=== PATIENT | female | born 1945 | race Caucasian/White ===

== ENCOUNTER 2018-02-28 00:34 | Outpatient (CLI) | payer OTHER, SELFPAY ==
--- NOTE | 2018-02-28 12:34 | DI.RAD_ITS ---
SYMPTOMS/DIAGNOSIS: OSTEOPOROSIS, M81.0, AGE-RELATED OSTEOPOROSIS WITHOUT CURRENT PHYSIOLOGICAL FRACTURE DEXA SCAN WITH IZA: Comparison is made with 2007. The IZA image shows no evidence of compression fractures. The bone mineral density measurements of the lumbar spine correspond to a T score of -3.9, in the osteoporotic range. This is a 5.8% decrease when compared with 2007. The bone mineral density measurements of the left hip correspond to a total T score of -3.5 and a femoral neck T score of -4.1, also consistent with osteoporosis. This is an 11.8% decrease when compared with 2007. The bone mineral density measurements of the left forearm correspond to a T score of the distal third of -3.8. The forearm was not analyzed on the previous exam. IMPRESSION: Osteoporosis of the left forearm, left hip and lumbar spine with decrease when compared with 2007.
== END 2018-02-28 00:54 ==
PROVIDERS: PCP Family Medicine; Visit Provider Family Medicine
DX: M81.0 Age-related osteoporosis without current pathological fracture (principal)
CPT/HCPCS: 77080

== ENCOUNTER 2018-04-10 00:47 | Outpatient (CLI) | payer OTHER, SELFPAY ==
--- NOTE | 2018-04-10 07:49 | DI.US_ITS ---
SYMPTOMS/DIAGNOSIS: SURVEILLANCE FOR LIVER CANCER, HEPATITIS C VIRUS INFECTION ABDOMINAL ULTRASOUND: Routine examination. Comparison is 10/27/17. The aorta and IVC are unremarkable. The liver measures 12 cm in length. No hepatic mass is seen. There is normal flow through the portal vein. No intrahepatic biliary ductal dilatation is present. The gallbladder is negative. There is a negative sonographic Meier's sign. The common duct is within normal limits at 0.4 cm. The pancreas, kidneys and spleen are unremarkable. No free fluid is seen in the abdomen. IMPRESSION: Negative abdominal ultrasound. No evidence of a hepatic mass.
== END 2018-04-10 01:07 ==
PROVIDERS: PCP Family Medicine; Visit Provider Family Medicine
DX: B19.20 Unspecified viral hepatitis C without hepatic coma (principal); Z12.89 Encounter for screening for malignant neoplasm of other sites
CPT/HCPCS: 76700

== ENCOUNTER 2018-10-31 00:54 | Outpatient (CLI) | payer OTHER, SELFPAY ==
--- NOTE | 2018-10-31 07:36 | DI.US_ITS ---
SYMPTOM/DIAGNOSIS: HEP C. CHRONIC HEPATITIS K73.9 ABDOMEN ULTRASOUND: Comparison is made with 10 Apr 2018 The liver is normal in size and echogenicity. No liver masses or biliary dilatation is seen. The gallbladder is unremarkable, without evidence of stones or wall thickening. The spleen is normal in size. The kidneys, pancreas and aorta appear normal. There is no ascites. IMPRESSION: Negative abdomen ultrasound.
== END 2018-10-31 01:14 ==
PROVIDERS: PCP Family Medicine; Visit Provider Family Medicine
DX: B18.2 Chronic viral hepatitis C (principal)
CPT/HCPCS: 76700

== ENCOUNTER 2019-03-13 01:27 | Outpatient (CLI) | payer OTHER, SELFPAY ==
--- NOTE | 2019-03-13 12:45 | DI.MAMMO_ITS ---
EXAM: MG MAMMO SCREENING CLINICAL HISTORY: screening, Z12.39 TECHNIQUE: Mammograms were interpreted according to the usual protocol including computer analysis w [email or web address] CAD system, tomosynthesis and C-view imaging. COMPARISON: [id number] FINDINGS: The breasts are composed of heterogeneously dense tissue, which may obscure small masses, breast dens ity category C. There are no significant masses or signficant microcalcifications. There has been no significant interval change when compared with prior images. IMPRESSION: Category 1, negative mammogram. Yearly screening mammography is recommended. BI-RADS Cat 1 - Negative Breast Density - Category C - Heterogeneously dense
== END 2019-03-13 01:47 ==
PROVIDERS: PCP Family Medicine; Visit Provider Family Medicine
DX: Z12.31 Encounter for screening mammogram for malignant neoplasm of breast (principal)
CPT/HCPCS: 77063; 77067

== ENCOUNTER 2019-05-11 03:08 | Outpatient (CLI) | payer OTHER, SELFPAY ==
--- NOTE | 2019-05-11 07:06 | DI.US_ITS ---
EXAM: US ABDOMEN CLINICAL HISTORY: HEP C, 6 MO F/U,B18.2 TECHNIQUE: Ultrasound performed using standard protocol. COMPARISON: US ABDOMEN from 10/31/2018 FINDINGS: Visualized liver parenchyma is normal in appearance. No focal lesion identified. No cholelithiasis or biliary dilatation. Pancreas appears intact as visualized. There may be tiny splenic calcified granulomas. Otherwise spleen is unremarkable. Kidneys are unremarkable in appearance with no evidence of hydronephrosis or nephrolithiasis. Abdominal aorta and IVC are of normal diameter. IMPRESSION: Negative abdominal ultrasound. No focal hepatic lesion.
== END 2019-05-11 03:28 ==
PROVIDERS: PCP Family Medicine; Visit Provider Nurse Practitioner
DX: B18.2 Chronic viral hepatitis C (principal)
CPT/HCPCS: 76700

== ENCOUNTER 2019-07-18 10:24 | Outpatient (CLI) | payer OTHER, SELFPAY ==
[2019-07-18 13:22] LABS: ALT 17 U/L (14-59); AST 21 U/L (15-37); Albumin 4.4 g/dL (3.4-5.0); Alkaline Phosphatase 67 U/L (46-116); Bilirubin, Direct 0.12 mg/dL (0.00-0.20); Bilirubin, Total 0.4 mg/dL (0.2-1.0); Total Protein 7.7 g/dL (6.4-8.2)
== END 2019-07-18 10:44 ==
PROVIDERS: PCP Family Medicine; Visit Provider Nurse Practitioner
DX: B18.2 Chronic viral hepatitis C (principal)
CPT/HCPCS: 36415; 80076

== ENCOUNTER 2019-12-11 13:01 | Outpatient (CLI) | payer OTHER, SELFPAY ==
--- NOTE | 2019-12-11 15:02 | DI.RAD_ITS ---
EXAM: XR RIBS BI INCLUDE CHEST CLINICAL HISTORY: rib pain after log fell on her, pleurodynia, R07.81 TECHNIQUE: COMPARISON: CR RIGHT CLAVICLE LIMITED 1 VIEW from 10/01/2015 FINDINGS: PA and lateral chest and 5 additional views of ribs were obtained. Heart is not enlarged. The lungs are clear and well expanded. No pleural effusion seen. There are a fractures ribs 6 through 9 on the right anteriorly. No definite left rib fracture seen. IMPRESSION: Multiple anterior rib fractures on the right, nondisplaced. No associated pneumothorax or hemothorax .
== END 2019-12-11 13:21 ==
PROVIDERS: PCP Family Medicine; Visit Provider Family Medicine
DX: R07.81 Pleurodynia (principal); S22.41XA Multiple fractures of ribs, right side, initial encounter for closed fracture
CPT/HCPCS: 71046; 71110

== ENCOUNTER 2020-02-01 03:45 | Outpatient (CLI) | payer OTHER, SELFPAY ==
--- NOTE | 2020-02-01 06:15 | DI.US_ITS ---
EXAM: US ABDOMEN CLINICAL HISTORY: h/o hep c,b18.2,f/u TECHNIQUE: Ultrasound abdomen performed using standard protocol. COMPARISON: US US ABDOMEN from 05/11/2019 FINDINGS: ABDOMINAL AORTA AND IVC: Visualized portions normal caliber. PANCREAS: Normal where visualized. LIVER: Normal. Hepatopedal flow in the Portal Vein. GALLBLADDER: No evidence of cholelithiasis. No evidence of wall thickening. No pericholecystic fluid identified. BILIARY SYSTEM: Common bile duct measures < 7 mm. No intrahepatic biliary ductal dilation. LI'S SIGN: Negative. KIDNEYS: Kidneys are symmetric in size. No evidence of renal calculi. No evidence of hydronephrosis. No renal mass or cyst identified. SPLEEN: Could not be visualized due to patient body habitus. ASCITES: None seen. IMPRESSION: No evidence of a hepatic mass. DATA REPOSITORY:
== END 2020-02-01 04:05 ==
PROVIDERS: PCP Family Medicine; Visit Provider Family Medicine
DX: B18.2 Chronic viral hepatitis C (principal)
CPT/HCPCS: 76700

== ENCOUNTER 2020-08-28 01:59 | Outpatient (CLI) | payer OTHER, SELFPAY ==
--- NOTE | 2020-08-28 07:00 | DI.MAMMO_ITS ---
EXAM: MAMMO SCREENING CLINICAL HISTORY: screening,z12.39. TECHNIQUE: Bilateral full field digital CC and MLO mammographic images were obtained with 3D tomosyn thesis and utilizing computer aided detection (CAD). COMPARISON: Prior mammograms dating back to 2010, the most recent being March 2019. FINDINGS: In the left breast there is an asymmetric density seen on the CC view 3 cm in from the nipple measuri ng approximately 10 by 5 millimeters, possible nodule. Spot compression view recommended. Asymmetri c tissue upper-outer quadrant right breast is unchanged from prior studies. No new malignant-appearing microcalcification groups in either breast. There is no significant architectural distortion nor skin thickening-retraction. IMPRESSION: 1. No radiographic evidence of malignancy in the right breast. 2. Possible nodule left breast. Spot compression view and possible ultrasound recommended BI-RADS Category 0 - Assessment Incomplete: Need additional imaging evaluation Breast Density - Category B - Scattered areas of fibroglandular density Breast density Category C or D implies that the patient has dense breast tissue. Dense breast tissue can make it harder to find cancer on a mammogram. Dense breast tissue is also associated with an incr eased risk of breast cancer. This information about the result of the mammogram report was provided to the patient to raise their awareness. Use this report when you speak with the patient about their risks for breast cancer, which includes their family history. At that time, you may recommend additional screening tests (Ultrasoun d or MRI) as these tests may add significant information. A negative radiographic report should not delay biopsy if a dominant or clinically suspicious mass is present. Up to ten percent of cancers are not identified on mammography. A negative report may reinforce clinical impression. Adenosis and dense breasts may obscure an underlying neoplasm. False positive reports average 6 to 10%. Patient will receive a letter notifying them of these results.
== END 2020-08-28 02:19 ==
PROVIDERS: PCP Family Medicine; Visit Provider Family Medicine
DX: Z12.31 Encounter for screening mammogram for malignant neoplasm of breast (principal); R92.8 Other abnormal and inconclusive findings on diagnostic imaging of breast
CPT/HCPCS: 77063; 77067

== ENCOUNTER 2020-09-02 01:35 | Outpatient (CLI) | payer OTHER, SELFPAY ==
--- NOTE | 2020-09-02 | DI.US_ITS ---
EXAM: MG MAMMO SCREEN CALL BACK UNI and U/S breast LT limited CLINICAL HISTORY: F/U MAMMO, LT ASYMMETRIC DENSITY, ? NODULE. TECHNIQUE: Craniocaudal and mediolateral oblique Full Field Digital Mammography views of the left br east with Computer Aided Diagnosis followed by Tomosynthesis and left breast ultrasound. COMPARISON: Priors available for comparison. FINDINGS: Mammography/Tomosynthesis: Masses/Architectural Distortion: None seen. No discrete mass persists on the additional views. Microcalcifictions: No suspicious pleomorphic-type are seen. Skin Thickening/Nipple Retraction: None. Left breast US: Echotexture: Normal appearance of the glandular tissue. Shadowing: No suspicious foci. Cyst: None. Solid lesions: None seen. Ductal dilation: None. IMPRESSION: 1. No evidence of malignancy is noted. 2. A six-month follow-up left mammogram is recommended for re-evaluation. 3. The findings were discussed with the patient on the date of the examination. BI-RADS Category 3 - 6 month - Probably Benign Finding: Recommend follow-up imaging in 6 months Breast Density - Category B - Scattered areas of fibroglandular density Breast density Category C or D implies that the patient has dense breast tissue. Dense breast tissue can make it harder to find cancer on a mammogram. Dense breast tissue is also associated with an incr eased risk of breast cancer. This information about the result of the mammogram report was provided to the patient to raise their awareness. Use this report when you speak with the patient about their risks for breast cancer, which includes their family history. At that time, you may recommend additional screening tests (Ultrasoun d or MRI) as these tests may add significant information. A negative radiographic report should not delay biopsy if a dominant or clinically suspicious mass is present. Up to ten percent of cancers are not identified on mammography. A negative report may reinforce clinical impression. Adenosis and dense breasts may obscure an underlying neoplasm. False positive reports average 6 to 10%. Patient will receive a letter notifying them of these results.
== END 2020-09-02 01:55 ==
PROVIDERS: PCP Family Medicine; Visit Provider Family Medicine
DX: Z12.31 Encounter for screening mammogram for malignant neoplasm of breast (principal); R92.8 Other abnormal and inconclusive findings on diagnostic imaging of breast; N64.59 Other signs and symptoms in breast
CPT/HCPCS: 76642; 77063; 77067

== ENCOUNTER 2020-12-05 03:34 | Outpatient (CLI) | payer OTHER, SELFPAY ==
[2020-12-05 11:04] LABS: ALT 17 U/L (14-59); AST 17 U/L (15-37); Albumin 3.9 g/dL (3.4-5.0); Alkaline Phosphatase 82 U/L (46-116); Anion Gap 6.6 mmol/L (3-11); BUN 16 mg/dL (7-18); Bilirubin, Total 0.4 mg/dL (0.2-1.0); CO2 30.4 mmol/L (21.0-32.0); CREATININE 0.9 mg/dL (0.55-1.02); Calcium 8.5 mg/dL (8.5-10.1); Chloride 104 mmol/L (98-107); Glucose 95 mg/dL (74-106); Potassium 3.9 mmol/L (3.5-5.1); Sodium 141 mmol/L (136-145); Total Protein 7.1 g/dL (6.4-8.2)
[2020-12-08 08:48] LABS: AFP Tumor Marker <2.5 ng/mL (<8.1)
[2020-12-08 10:22] LABS: Hepatitis C Ab w Rflx HCV PCR Reactive (Negative)
[2020-12-10 15:18] LABS: HCV RNA Qualitative Undetected (Undetected)
== END 2020-12-05 03:35 | disposition home or self-care (01) ==
LOC: LBO 03:34
PROVIDERS: PCP Family Medicine; Visit Provider Family Medicine
DX: B18.2 Chronic viral hepatitis C (principal)
CPT/HCPCS: 36415; 80053; 86803; 87522; 82105

== ENCOUNTER 2021-01-29 11:36 | Outpatient (CLI) | payer OTHER, SELFPAY ==
--- NOTE | 2021-01-29 11:30 | RT.EKG_ITS ---
APPROVED REPORT Exam: Resting ECG Reason for Exam: Chest discomfort Patient Location: O HR:59 bpm ECG Measurements Heart Rate 59 AXIS DC 172 P 78 QRSd 87 QRS 78 QT 415 T 62 QTc 410 Conclusion Slow sinus arrhythmia...V-rate 50- 82, mean< 60 Probable left atrial enlargement...P >50mS, <-0.10mV V1
== END 2021-01-29 11:37 | disposition home or self-care (01) ==
PROVIDERS: PCP Family Medicine; Visit Provider Nurse Practitioner Family
DX: R07.89 Other chest pain (principal)
CPT/HCPCS: 93010

== ENCOUNTER 2021-01-29 21:08 | Outpatient (REF) | payer OTHER, SELFPAY ==
[2021-01-29 18:09] LABS: Abs Immature Grans 0.01 10^3/uL (0.0-0.06); Absolute Basophil Count 0.05 10^3/uL (0.0-0.2); Absolute Eosinophil Count 0.14 10^3/uL (0.0-0.7); Absolute Lymphocyte Count 0.97 10^3/uL (1.2-3.4); Absolute Monocyte Count 0.64 10^3/uL (0.1-0.8); Absolute Neutrophil Count 2.27 10^3/uL (1.2-6.7); Basophils % 1.2; Eosinophils % 3.4; HCT 37.3 % (36.0-46.0); HGB 11.8 g/dL (11.2-15.7); Immature Grans % 0.2; Lymphocytes % 23.8; MCH 29.7 pg (27.0-33.0); MCHC 31.6 % (32.0-36.0); MPV 11.3 fL (8.0-11.0); Monocytes % 15.7; Neutrophils % 55.7; Nucleated RBC 0 %; RBC 3.97 10^6/uL (3.93-5.22); RDW 13.2 % (11.7-14.6); RDW-SD 45.3 fL; WBC 4.08 10^3/uL (4.4-10.8)
[2021-01-29 18:25] LABS: Anion Gap 6.5 mmol/L (3-11); BUN 17 mg/dL (7-18); CO2 29.5 mmol/L (21.0-32.0); CREATININE 0.9 mg/dL (0.55-1.02); Calcium 8.6 mg/dL (8.5-10.1); Chloride 105 mmol/L (98-107); Glucose 109 mg/dL (74-106); Magnesium 2.1 mg/dL (1.8-2.4); Potassium 4.6 mmol/L (3.5-5.1); Sodium 141 mmol/L (136-145)
[2021-01-29 18:34] LABS: Platelet Count 103 10^3/uL (130-400)
[2021-01-31 12:06] LABS: COVID-19 RT-PCR UVMMC Result Negative (Negative)
== END 2021-01-29 21:09 | disposition home or self-care (01) ==
LOC: LBN 21:08
PROVIDERS: Referring Provider Nurse Practitioner Family; Visit Provider Nurse Practitioner Family
DX: R07.9 Chest pain, unspecified (principal); Z20.822 Contact with and (suspected) exposure to COVID-19
CPT/HCPCS: 80048; U0003; 83735; 85025

== ENCOUNTER 2021-02-05 02:05 | Outpatient (CLI) | payer MEDICARE, SELFPAY ==
--- NOTE | 2021-02-05 08:00 | ETT_ITS ---
APPROVED REPORT Exam: Exercise Treadmill Patient Location: Out-Patient Room/Bed: Stress Nurse: Antoinette Brown RN Ordering Provider:BONNIE CROWLEY, Contact Number: [phone] BMI: 17.35 Baseline Rhythm: Sinus Arrhythmia Comment: inverted T waves in leads aVL and V2. Indications: Chest Pain Medical History Medical History: Anxiety, Bulemia nervosa, Depression, Osteoporosis, Renal failure syndrome Cardiac Medications: None Allergies: No known drug allergies Cardiac Risk Factors: None Previous Cardiac Procedures: None Pretest Chest Pain Characteristics: No chest pain; I have a lot of different pains Exercise History: Physically active Physical Disabilities: None Lung Sounds: Clear to auscultation Heart Sounds: Irregular Stress Test Details Test: Exercise stress testing was performed using a modified Chicho protocol due to unexpected treadm ill error during exercise test. Rest Stress HR Resting HR Supine: 61 bpm Max Heart Rate (APMHR): 147 bpm Resting HR Standin bpm Target HR (85% APMHR): 124 bpm Max HR Achieved: 135 bpm % of APMHR: 91 Recovery HR: 75 bpm HR response to stress: Normal HR response to stress BP Resting BP Supine: 128/70 mmHg Resting BP Standin/72 mmHg Max BP: 138/80 mmHg Recovery BP: 138/80 mmHg BP response to stress: Normal blood pressure response to stress. Comment: Hypotensive response to cessation of exercise. ECG Resting ECG: Sinus Arrhythmia Ectopy: None Comment: inverted T waves in leads aVL and V2 Stress ECG: Sinus Tachycardia ST Change: No significant ST segment changes noted Arrhythmia: None Recovery ECG: Sinus Arrhythmia Recovery ST Change: No significant ST segment changes noted Recovery Arrhythmia: None Clinical Reason for Termination: Fatigue Stress Symptoms: None Rate Pressure Product: 30208 Stress ECG Conclusion 1. Resting electrocardiogram showed right axis deviation, voltage for left ventricular hypertrophy, a trial premature beats 2. Patient exercised on a modified Chicho protocol. She achieved a workload of 7 METS, limited by fat igue 3. Peak heart rate achieved was 91% of predicted for age. Normal heart rate response to exercise. B lunted blood pressure response to exercise 4. Electrocardiographically there was no evidence of myocardial ischemia Stress Test Summary STAGE Time (mins) Speed (mph) Grade (%) HR BP SYMPTOMS METS Supine 61 128/70 Standing 71 120/72 1 3 1.7 10 88 120/74 4.6 2 6 2.5 12 91 124/68 7 1 min recovery 111 120/68 3 min recovery 72 138/70 6 min recovery 75 138/80 Treadmill unexpectedly stopped during exercise testing, at 8 min 46 sec. Monitor displayed Treadm ill Communication Error. Patient was asked to get off treadmill to troubleshoot. After a few minutes Treadmill was available to use again. Because of the time already spent on the treadmill, I decided to continue with current test instead of having patient start over. Treadmill was restarted in manual mode and patient increased speed and incline to 4.2 mph at 16% grade before having to stop. Total du ration of exercise was about 12 minutes.
== END 2021-02-05 02:25 ==
PROVIDERS: PCP Family Medicine; Visit Provider Family Medicine
DX: R07.9 Chest pain, unspecified (principal); I49.1 Atrial premature depolarization; I51.7 Cardiomegaly
CPT/HCPCS: 93016; 93018; 93017

== ENCOUNTER 2021-02-05 04:02 | Outpatient (CLI) | payer OTHER, SELFPAY ==
[2021-02-05 13:49] LABS: TSH (W/Ref FT4) 1.69 uIU/mL (0.36-3.74)
== END 2021-02-05 04:03 | disposition home or self-care (01) ==
LOC: LBO 04:02
PROVIDERS: PCP Family Medicine; Visit Provider Family Medicine
DX: R53.83 Other fatigue (principal)
CPT/HCPCS: 36415; 84443

== ENCOUNTER 2021-03-04 02:22 | Outpatient (CLI) | payer MEDICARE, SELFPAY ==
--- NOTE | 2021-03-04 07:15 | DI.US_ITS ---
Exam(s) US BREAST LT COMPLETE EXAM: US BREAST LT COMPLETE CLINICAL HISTORY: 3-6 MO F/U,F/U INCONCLUSIVE ABNL MAMMO, Z09. TECHNIQUE: Complete ultrasound of the left breast was performed including all 4 quadrants, the retro areolar region, and the ipsilateral axilla. COMPARISON: Prior mammograms were reviewed. . Today's spot compression mammographic view was also r eviewed. FINDINGS: At the 2 o'clock position there is a small benign-appearing lymph node which corresponds to lymph nod e which has been on numerous prior mammograms. At the 4 o'clock position there is also a finding which is difficult to determine intramammary lymph node versus normal tissue. Nevertheless, there is no ominous solid mass evident on ultrasound IMPRESSION: Benign ultrasound findings. Appropriate follow-up is to keep this patient yearly mammogram schedule, this implying that her next bilateral mammogram is in August 2021, with earlier imaging if a self detected breast change is noted. . BI-RADS Category 2 - Benign Findings Breast Density - Category B - Scattered areas of fibroglandular density Breast density Category C or D implies that the patient has dense breast tissue. Dense breast tissue can make it harder to find cancer on a mammogram. Dense breast tissue is also associated with an incr eased risk of breast cancer. This information about the result of the mammogram report was provided to the patient to raise their awareness. Use this report when you speak with the patient about their risks for breast cancer, which includes their family history. At that time, you may recommend additional screening tests (Ultrasoun d or MRI) as these tests may add significant information. A negative radiographic report should not delay biopsy if a dominant or clinically suspicious mass is present. Up to ten percent of cancers are not identified on mammography. A negative report may reinforce clinical impression. Adenosis and dense breasts may obscure an underlying neoplasm. False positive reports average 6 to 10%. Patient will receive a letter notifying them of these results.
--- NOTE | 2021-03-04 09:20 | DI.MAMMO_ITS ---
Exam(s) MAMMO DIAGNOSTIC UNI EXAM: MAMMO DIAGNOSTIC UNI-LEFT CLINICAL HISTORY: 3-6 MO F/U,R92.8,INCONCLUSIVE ABNL MAMMO, Z09. TECHNIQUE: Unilateral spot mammographic images were obtained with 3D tomosynthesis technique and uti lizing computer aided detection (CAD). COMPARISON: Prior mammograms dating back to 2011, the most recent being August 2020. FINDINGS: Previously described asymmetric density seen in the left breast is again noted, again more visible on the CC than on the MLO view. 3D imaging is somewhat equivocal at this level. We repeated left breast ultrasound today (see that separate report) and this did not reveal new obvio us abnormality. IMPRESSION: Benign findings. No obvious radiographic evidence of malignancy in left breast. Appropriate follow-up is to keep this patient on her yearly mammogram schedule, this implying that he r next bilateral mammogram would be in 6 months-August 2021, with earlier imaging if a self detected b reast change is noted.. The patient was informed of the findings and follow-up recommendations by myself prior to leaving the department today. BI-RADS Category 2 - Benign Findings Breast Density - Category B - Scattered areas of fibroglandular density Breast density Category C or D implies that the patient has dense breast tissue. Dense breast tissue can make it harder to find cancer on a mammogram. Dense breast tissue is also associated with an incr eased risk of breast cancer. This information about the result of the mammogram report was provided to the patient to raise their awareness. Use this report when you speak with the patient about their risks for breast cancer, which includes their family history. At that time, you may recommend additional screening tests (Ultrasoun d or MRI) as these tests may add significant information. A negative radiographic report should not delay biopsy if a dominant or clinically suspicious mass is present. Up to ten percent of cancers are not identified on mammography. A negative report may reinforce clinical impression. Adenosis and dense breasts may obscure an underlying neoplasm. False positive reports average 6 to 10%. Patient will receive a letter notifying them of these results.
== END 2021-03-04 02:42 ==
PROVIDERS: PCP Family Medicine; Visit Provider Family Medicine
DX: R92.8 Other abnormal and inconclusive findings on diagnostic imaging of breast (principal); Z09 Encounter for follow-up examination after completed treatment for conditions other than malignant neoplasm
CPT/HCPCS: 76642; 77061; 77065; G0279

== ENCOUNTER 2021-07-15 01:07 | Outpatient (CLI) | payer MEDICARE, SELFPAY ==
--- NOTE | 2021-07-15 06:30 | DI.US_ITS ---
Exam(s) US ABDOMEN EXAM: US ABDOMEN INDICATION: H/O hep c,chronic,surveillance,b18.2 COMPARISON: US US BREAST LT COMPLETE from 03/04/2021 TECHNIQUE: Ultrasound abdomen performed using standard protocol FINDINGS: Abdominal ultrasound was performed according to the usual protocol. The liver is normal in size and shape. No focal hepatic lesion seen. There is no evidence of cholelithiasis or biliary dilatation. No gallbladder wall thickening or peric holecystic fluid collection. Portal venous flow is hepatopetal. Pancreas appears intact as visualized. Spleen is unremarkable in appearance with no focal lesion. Kidneys are normal in size and shape. No renal mass, hydronephrosis, or nephrolithiasis. Abdominal aorta and IVC are of normal diameter. IMPRESSION: Negative abdominal ultrasound .
== END 2021-07-15 01:27 ==
PROVIDERS: PCP Family Medicine; Visit Provider Family Medicine
DX: B18.2 Chronic viral hepatitis C (principal)
CPT/HCPCS: 76700

== ENCOUNTER → 2021-10-19 01:41 | Outpatient (CLI) | payer MEDICARE, SELFPAY ==
--- NOTE | 2021-10-19 07:15 | DI.RAD_ITS ---
Exam(s) XR THORACIC SPINE COMPLETE EXAM: XR THORACIC SPINE COMPLETE CLINICAL HISTORY: thoracic back pain,m54.6,m81.0, osteoporosis. TECHNIQUE: 2D digital imaging was performed. Two views. COMPARISON: CR XR RIBS BI INCLUDE CHEST from 12/11/2019 FINDINGS: BONES: There are stable mild compression fractures of T7 and T11. There are new moderate compression fractures of T8 and T9. Small osteophytes are noted and the mid thoracic region. Alignment is within normal limits. SOFT TISSUE: The visualized portions of the lungs appear clear. The heart size appears normal. The aorta appears normal in diameter.. IMPRESSION: Stable T7 and T11 compression fractures. Moderate compression fractures of T8 and T9 are new when co mpared with 2020 chest x-ray.. DATA REPOSITORY: RADIATION DOSE DELIVERED:
== END ==
PROVIDERS: PCP Family Medicine; Visit Provider Family Medicine
DX: M54.6 Pain in thoracic spine (principal); M81.0 Age-related osteoporosis without current pathological fracture; M48.54XD Collapsed vertebra, not elsewhere classified, thoracic region, subsequent encounter for fracture with routine healing; M48.54XA Collapsed vertebra, not elsewhere classified, thoracic region, initial encounter for fracture
CPT/HCPCS: 72072

== ENCOUNTER 2021-11-03 02:35 | Outpatient (CLI) | payer MEDICARE, SELFPAY ==
[2021-11-04 10:07] LABS: AFP Tumor Marker <2.5 ng/mL (<8.1)
[2021-11-04 10:32] LABS: Hepatitis C Ab w Rflx HCV PCR Reactive (Negative)
[2021-11-05 14:34] LABS: HCV RNA Qualitative Undetected (Undetected)
== END 2021-11-03 02:36 | disposition home or self-care (01) ==
LOC: LBO 02:35
PROVIDERS: PCP Family Medicine; Visit Provider Family Medicine
DX: B18.2 Chronic viral hepatitis C (principal)
CPT/HCPCS: 36415; 80061; 86803; 87522; 82105

== ENCOUNTER 2021-12-04 11:37 | Outpatient (CLI) | payer MEDICARE, SELFPAY ==
[2021-12-04 13:06] LABS: ALT 18 U/L (14-59); AST 21 U/L (15-37); Albumin 4.1 g/dL (3.4-5.0); Alkaline Phosphatase 76 U/L (46-116); Anion Gap 7.8 mmol/L (3-11); BUN 17 mg/dL (7-18); Bilirubin, Total 0.6 mg/dL (0.2-1.0); CO2 28.2 mmol/L (21.0-32.0); CREATININE 0.9 mg/dL (0.55-1.02); Calcium 8.9 mg/dL (8.5-10.1); Calculated LDL 108 mg/dL (<100); Chloride 104 mmol/L (98-107); Cholesterol 220 mg/dL (<200); Glucose 88 mg/dL (74-106); HDL Cholesterol 100 mg/dL (40-60); Potassium 4.3 mmol/L (3.5-5.1); Sodium 140 mmol/L (136-145); Total Protein 7.4 g/dL (6.4-8.2); Triglyceride 64 mg/dL (<150)
[2021-12-04 13:15] LABS: Vitamin D 25 Total 53.4 ng/mL (30-100)
[2021-12-04 13:25] LABS: PHOSPHORUS 3.9 mg/dL (2.6-4.7)
[2021-12-07 10:57] LABS: Parathyroid Hormone,Intact 86 pg/mL (19-88)
== END 2021-12-04 11:38 | disposition home or self-care (01) ==
LOC: LBO 11:37
PROVIDERS: PCP Family Medicine; Visit Provider Family Medicine
DX: I10 Essential (primary) hypertension (principal); M81.0 Age-related osteoporosis without current pathological fracture
CPT/HCPCS: 36415; 80053; 80061; 82306; 83970; 84100

== ENCOUNTER 2022-03-09 03:50 | Outpatient (CLI) | payer MEDICARE, SELFPAY ==
[2022-03-09 11:03] LABS: Abs Immature Grans 0.01 10^3/uL (0.0-0.06); Absolute Basophil Count 0.03 10^3/uL (0.0-0.2); Absolute Eosinophil Count 0.12 10^3/uL (0.0-0.7); Absolute Lymphocyte Count 1.35 10^3/uL (1.2-3.4); Absolute Monocyte Count 0.56 10^3/uL (0.1-0.8); Absolute Neutrophil Count 1.71 10^3/uL (1.2-6.7); Basophils % 0.8; Eosinophils % 3.2; HCT 38.2 % (36.0-46.0); HGB 12.3 g/dL (11.2-15.7); Immature Grans % 0.3; Lymphocytes % 35.7; MCH 29.8 pg (27.0-33.0); MCHC 32.2 % (32.0-36.0); MCV 93 fL (80-95); MPV 11.7 fL (8.0-11.0); Monocytes % 14.8; Neutrophils % 45.2; Platelet Count 108 10^3/uL (130-400); RBC 4.13 10^6/uL (3.93-5.22); RDW 13.2 % (11.7-14.6); WBC 3.78 10^3/uL (4.4-10.8)
[2022-03-09 11:36] LABS: TSH (W/Ref FT4) 4.35 uIU/mL (0.36-3.74)
[2022-03-09 11:55] LABS: FREE T4 0.81 ng/dL (0.76-1.46)
[2022-03-09 17:59] LABS: Parathyroid Hormone,Intact 78 pg/mL (19-88)
[2022-03-10 14:08] LABS: Albumin 63.4 % (55.8-66.1); Albumin g/dL 4.1 g/dL (3.6-5.2); Total Protein 6.5 g/dL (6.3-8.2)
== END 2022-03-09 03:51 | disposition home or self-care (01) ==
LOC: LBO 03:50
PROVIDERS: PCP Family Medicine; Visit Provider Student in an Organized Health Care Education/Training Program
DX: M80.00XD Age-related osteoporosis with current pathological fracture, unspecified site, subsequent encounter for fracture with routine healing (principal); R53.83 Other fatigue
CPT/HCPCS: 36415; 83970; 84165; 84439; 84443; 85025

== ENCOUNTER 2022-03-09 15:07 | Outpatient (REF) | payer MEDICARE, SELFPAY ==
[2022-03-09 14:17] LABS: Creatinine,Urine 41.59 mg/dL
[2022-03-09 14:21] LABS: Creatinine,24hr Ur 0.67 g/24hr (0.60-1.80); Total Volume 1600 ml
[2022-03-11 09:07] LABS: Calcium Urine 7.9 mg/dL (See Note); Calcium Urine 24 hr 126 mg/24hrs (100-300); Timed Urine Volume 1600 mL
== END 2022-03-09 15:08 | disposition home or self-care (01) ==
LOC: LBN 15:07
PROVIDERS: PCP Family Medicine; Visit Provider Student in an Organized Health Care Education/Training Program
DX: M80.00XD Age-related osteoporosis with current pathological fracture, unspecified site, subsequent encounter for fracture with routine healing (principal)
CPT/HCPCS: 81050; 82340; 82570

== ENCOUNTER 2022-09-03 09:54 | Outpatient (CLI) | payer MEDICARE, SELFPAY ==
--- NOTE | 2022-09-03 09:45 | DI.RAD_ITS ---
Exam(s) XR CHEST 2V PA LATERAL EXAM: XR CHEST 2V PA LATERAL CLINICAL HISTORY: Fall; painful left ribs W19.XXXA TECHNIQUE: 2D digital imaging was performed. COMPARISON: CR XR RIBS BI INCLUDE CHEST from 12/11/2019 CR XR THORACIC SPINE COMPLETE from 10/19/2021 FINDINGS: HEART: Normal size. Aorta: Not dilated. PULMONARY VASCULATURE: Normal. LUNGS: Clear. PLEURAL SPACE: No pleural effusion or pneumothorax. BONE:Stable thoracic compression fractures. No rib fractures are visible. Old distal right clavicle fracture. IMPRESSION: No acute abnormality. DATA REPOSITORY: RADIATION DOSE DELIVERED:
--- NOTE | 2022-09-03 09:45 | DI.CT_ITS ---
Exam(s) CT THORACIC LUMBAR SPINE WO EXAM: CT THORACIC LUMBAR SPINE WO CLINICAL HISTORY: Fall, back pain W19.XXXA. TECHNIQUE: Imaging Protocol: Axial, coronal and sagittal images were reconstructed utilizing soft ti ssue and bone algorithm.. COMPARISON: CR XR THORACIC SPINE COMPLETE from 10/19/2021 FINDINGS: Thoracic spine: Bones: Stable moderate compression fractures of T7, T8 and T9. Stable mild compression fractures sup erior endplate of T11. No acute fractures are seen. The alignment of the spine is normal including t he cervicothoracic junction. Soft tissues: The soft tissues of the chest are unremarkable. No large disk herniations are identifie d. Lumbar spine: No fracture is identified. Degenerative disc changes and facet degenerative changes are present grea test at L5-S1.. Soft tissues: There is multilevel disc bulging. There is no large disc herniation. No paraspinal hem atoma. A large quantity of stool is incidentally noted. IMPRESSION: Stable compression fractures of the thoracic spine. No acute abnormality of the thoracic or lumbar sp ine. RADIATION DOSE DELIVERED: 486.76mGy.cm Total DLP DATA REPOSITORY: All CT scans at this facility are submitted to the National Radiology Data Registry (NRDR) Dose Index Registry (DIR) with the [employer] ([employer]). RADIATION OPTIMIZATION: All CT scans at this facility use at least one of these dose optimization te chniques: automated exposure control; mA and/or kV adjustment per patient size (includes targeted exa ms where dose is matched to clinical indication); or iterative reconstruction.
--- NOTE | 2022-09-03 09:45 | DI.CT_ITS ---
Exam(s) CT HEAD CERVICAL SPINE WO EXAM: CT HEAD CERVICAL SPINE WO CLINICAL HISTORY: Fall, left face pain, swelling, ecchymosis W19.XXXA. TECHNIQUE: Imaging Protocol: Axial computed tomography images with coronal and sagittal reformatted images were created and reviewed COMPARISON: No exams were available for comparison FINDINGS: Head CT Ventricles and Extra axial spaces: Normal in size and morphology for the patient's age. Hemorrhage: None. Cerebral parenchyma: Normal. Midline shift: None. Brainstem/Cerebellum: Normal. Calvarium: Normal. No facial fractures. Visualized Paranasal sinuses/Mastoids: Clear. Cervical Spine CT BONES: Vertebral body heights are maintained. Alignment is normal. There is no evidence of acute frac ture. Degenerative disc changes and facet degenerative changes are seen . SOFT TISSUES: No paraspinal hematoma. The airway appears intact. No pneumothorax is seen at the lung apices. IMPRESSION: Head CT: No acute abnormality. C-spine CT: Degenerative changes, no acute abnormality. RADIATION DOSE DELIVERED: 906.05mGy.cm Total DLP DATA REPOSITORY: All CT scans at this facility are submitted to the National Radiology Data Registry (NRDR) Dose Index Registry (DIR) with the [employer] ([employer]). RADIATION OPTIMIZATION: All CT scans at this facility use at least one of these dose optimization te chniques: automated exposure control; mA and/or kV adjustment per patient size (includes targeted exa ms where dose is matched to clinical indication); or iterative reconstruction.
== END 2022-09-03 10:14 ==
LOC: DI 09:54
PROVIDERS: PCP Family Medicine; Visit Provider Nurse Practitioner Family
DX: W19.XXXA Unspecified fall, initial encounter (principal)
CPT/HCPCS: 70450; 71046; 72125; 72128; 72131

== ENCOUNTER 2022-09-10 02:09 | Outpatient (CLI) | payer MEDICARE, SELFPAY ==
[2022-09-10 16:41] LABS: ALT 16 U/L (14-59); AST 19 U/L (15-37); Albumin 3.7 g/dL (3.4-5.0); Alkaline Phosphatase 68 U/L (46-116); Anion Gap 5.9 mmol/L (3-11); BUN 13 mg/dL (7-18); Bilirubin, Total 0.5 mg/dL (0.2-1.0); CO2 29.1 mmol/L (21.0-32.0); Calcium 8.9 mg/dL (8.5-10.1); Chloride 104 mmol/L (98-107); Estimated GFR 58.75 (mL/min/1.73m2); Glucose 146 mg/dL (74-106); Potassium 4.4 mmol/L (3.5-5.1); Sodium 139 mmol/L (136-145); Total Protein 7.2 g/dL (6.4-8.2)
[2022-09-13 10:43] LABS: Hepatitis C Ab w Rflx HCV PCR Reactive (Negative)
[2022-09-15 12:23] LABS: HCV RNA Qualitative Undetected (Undetected)
== END 2022-09-10 02:10 | disposition home or self-care (01) ==
LOC: LBO 02:09
PROVIDERS: PCP Family Medicine; Visit Provider Family Medicine
DX: B18.2 Chronic viral hepatitis C (principal)
CPT/HCPCS: 36415; 80053; 86803; 87522

== ENCOUNTER 2022-09-21 01:15 | Outpatient (CLI) | payer MEDICARE, SELFPAY ==
--- NOTE | 2022-09-21 07:15 | DI.US_ITS ---
Exam(s) US ABDOMEN EXAM: US ABDOMEN CLINICAL HISTORY: h/o hep c,F/U,B18.2 TECHNIQUE: Ultrasound abdomen performed using standard protocol. COMPARISON: US US ABDOMEN from 07/15/2021 FINDINGS: ABDOMINAL AORTA AND IVC: Visualized portions normal caliber. PANCREAS: Normal where visualized. LIVER: Normal. Hepatopedal flow in the Portal Vein. GALLBLADDER:No evidence of cholelithiasis. No evidence of wall thickening. No pericholecystic fluid i dentified. BILIARY SYSTEM: Common bile duct measures < 7 mm. No intrahepatic biliary ductal dilation. LI'S SIGN: Negative. KIDNEYS: Kidneys are symmetric in size. No evidence of renal calculi. No evidence of hydronephrosis. No renal mass or cyst identified. There is limited visualization of the left kidney due to body habit us and bowel gas. SPLEEN: No gross abnormality. There is limited visualization due to the body habitus and bowel gas. ASCITES: None seen. IMPRESSION: Normal sonographic appearance of the upper abdomen within the limitations of the examination as descr ibed above. DATA REPOSITORY:
== END 2022-09-21 01:35 ==
PROVIDERS: PCP Family Medicine; Visit Provider Family Medicine
DX: B18.2 Chronic viral hepatitis C (principal); Z86.19 Personal history of other infectious and parasitic diseases
CPT/HCPCS: 76700

== ENCOUNTER 2022-12-13 01:20 | Outpatient (CLI) | payer MEDICARE, SELFPAY ==
--- NOTE | 2022-12-13 08:15 | DI.MAMMO_ITS ---
Exam(s) MAMMO SCREENING EXAM: MAMMO SCREENING CLINICAL HISTORY: screening,z12.39 TECHNIQUE: Mammograms were interpreted according to the usual protocol including computer analysis w [employer] CAD system, tomosynthesis and C-view imaging. COMPARISON: 2013 through 2019 FINDINGS: The breasts are composed of scattered fibroglandular densities, Breast Density category B. No suspicious masses or suspicious microcalcifications are seen. No skin thickening or abnormal axillary lymph nodes are seen. There has been no significant change from prior exams. IMPRESSION: BI-RADS Category 1, Negative mammogram Yearly screening mammography is recommended. Breast Density - Category B, scattered fibroglandular densities. A negative radiographic report should not delay biopsy if a dominant or clinically suspicious mass is present. Up to ten percent of cancers are not identified on mammography. A negative report may reinforce clinical impression. Adenosis and dense breasts may obscure an underlying neoplasm. False positive reports average 6 to 10%. Patient will receive a letter notifying them of these results.
== END 2022-12-13 01:40 ==
LOC: DI 01:20
PROVIDERS: PCP Family Medicine; Visit Provider Family Medicine
DX: Z12.31 Encounter for screening mammogram for malignant neoplasm of breast (principal)
CPT/HCPCS: 77063; 77067

== ENCOUNTER 2023-02-17 11:30 | Outpatient (REF) | payer MEDICARE, SELFPAY ==
[2023-02-17 14:49] LABS: Source Nasal/Nares
[2023-02-17 16:25] LABS: COVID-19 PCR Negative (Negative)
== END 2023-02-17 11:31 | disposition home or self-care (01) ==
LOC: NCHCN 11:30
PROVIDERS: PCP Family Medicine; Visit Provider Physician Assistant Medical
DX: U07.1 COVID-19 (principal)
CPT/HCPCS: 87635

== ENCOUNTER → 2023-07-11 02:36 | Outpatient (CLI) | payer MEDICARE, SELFPAY ==
--- NOTE | 2023-07-11 08:45 | DI.CT_ITS ---
Exam(s) CT HEAD WO EXAM: CT HEAD WO CLINICAL HISTORY: memory changes, R41.3. TECHNIQUE: Imaging Protocol: Axial computed tomography images with coronal and sagittal reformatted images were created and reviewed COMPARISON: CT CT HEAD CERVICAL SPINE WO from 09/03/2022 FINDINGS: Ventricles and Extra axial spaces: Normal in size and morphology for the patient's age. Hemorrhage: None. Cerebral parenchyma: No evidence of acute infarct or mass. Midline shift: None. Brainstem/Cerebellum: Normal. Calvarium: Normal. Visualized Paranasal sinuses:Clear. Mastoids: Clear. Soft Tissues: Unremarkable. ORBITS: Unremarkable. PITUITARY: Not enlarged. IMPRESSION: No acute intracranial process. RADIATION DOSE DELIVERED: 648.21mGy.cm Total DLP DATA REPOSITORY: All CT scans at this facility are submitted to the National Radiology Data Registry (NRDR) Dose Index Registry (DIR) with the [employer] (ACR). RADIATION OPTIMIZATION: All CT scans at this facility use at least one of these dose optimization te chniques: automated exposure control; mA and/or kV adjustment per patient size (includes targeted exa ms where dose is matched to clinical indication); or iterative reconstruction.
== END ==
PROVIDERS: PCP Family Medicine; Visit Provider Family Medicine
DX: R41.3 Other amnesia (principal)
CPT/HCPCS: 70450

== ENCOUNTER 2023-07-11 04:57 | Outpatient (CLI) | payer MEDICARE, SELFPAY ==
[2023-07-11 08:54] LABS: HCT 39.3 % (36.0-46.0); HGB 12.6 g/dL (11.2-15.7); MCH 29.7 pg (27.0-33.0); MCHC 32.1 % (32.0-36.0); MCV 93 fL (80-95); MPV 10.9 fL (8.0-11.0); Platelet Count 122 10^3/uL (130-400); RBC 4.24 10^6/uL (3.93-5.22); RDW 13.3 % (11.7-14.6); RDW-SD 45.2 fL; WBC 3.55 10^3/uL (4.4-10.8)
[2023-07-11 09:41] LABS: ALT 13 U/L (14-59); AST 18 U/L (15-37); Albumin 3.8 g/dL (3.4-5.0); Alkaline Phosphatase 63 U/L (46-116); Anion Gap 7.2 mmol/L (3-11); BUN 21 mg/dL (7-18); Bilirubin, Total 0.4 mg/dL (0.2-1.0); CO2 30.8 mmol/L (21.0-32.0); Calcium 9.6 mg/dL (8.5-10.1); Chloride 103 mmol/L (98-107); Estimated GFR 58.75 (mL/min/1.73m2); Glucose 92 mg/dL (74-106); Potassium 4.2 mmol/L (3.5-5.1); Sodium 141 mmol/L (136-145); TSH (W/Ref FT4) 2.81 uIU/mL (0.36-3.74); Total Protein 7.1 g/dL (6.4-8.2); Vitamin B12 1091 pg/mL (193-986)
[2023-07-11 09:42] LABS: Hemoglobin A1C 5.6 % (<5.7)
[2023-07-11 18:41] LABS: Hepatitis C Ab w Rflx HCV PCR Reactive (Negative)
[2023-07-13 12:54] LABS: HCV RNA Qualitative Undetected (Undetected)
== END 2023-07-11 04:58 | disposition home or self-care (01) ==
LOC: LBO 04:57
PROVIDERS: PCP Family Medicine; Visit Provider Family Medicine
DX: E03.9 Hypothyroidism, unspecified (principal); R41.3 Other amnesia; E11.9 Type 2 diabetes mellitus without complications; I10 Essential (primary) hypertension; B18.2 Chronic viral hepatitis C; D64.9 Anemia, unspecified
CPT/HCPCS: 36415; 80053; 85027; 86803; 87522; 82607; 83036; 84443

== ENCOUNTER → 2023-09-20 10:28 | Outpatient (CLI) | payer MEDICARE, SELFPAY ==
--- NOTE | 2023-09-20 10:00 | DI.RAD_ITS ---
Exam(s) XR LUMBAR SPINE COMPLETE EXAM: XR LUMBAR SPINE COMPLETE CLINICAL HISTORY: back pain, dorsalgia, M54.9. TECHNIQUE: 2D digital imaging was performed. COMPARISON: No exams were available for comparison FINDINGS: 3 views There is slight indentation of the superior endplate of L1 which may be a nonacute compression fractu re. There is also some loss of height of T11 at superior endplate level, age indeterminate. Advanced chronic disc space narrowing at L5-S1 level noted. IMPRESSION: Compression fractures T11 and milder in dentition of superior endplate of L1, age indeterminate. Cor relation with site of is recommended. DATA REPOSITORY: RADIATION DOSE DELIVERED:
--- NOTE | 2023-09-20 10:00 | DI.RAD_ITS ---
Exam(s) XR THORACIC SPINE COMPLETE EXAM: XR THORACIC SPINE COMPLETE CLINICAL HISTORY: back pain, dorsalgia, M54.9. TECHNIQUE: 2D digital imaging was performed. COMPARISON: CR XR THORACIC SPINE COMPLETE from 10/19/2021 FINDINGS: Four views. There are compression fractures of T7, T8, T9, and T11 again noted, unchanged. No compression fractu re of T10. No higher up compression fractures above T7. No listhesis. No prominent disc space narr owing. No abnormal widening of the paraspinal lines and there is no thoracic scoliosis. Incidentally noted is chronic degenerative disc disease in the cervical spine. IMPRESSION: Nonacute compression fractures of T7, T8, T9, and T11, appearing unchanged from images of October 2021. DATA REPOSITORY: RADIATION DOSE DELIVERED:
== END ==
PROVIDERS: PCP Family Medicine; Visit Provider Physician Assistant
DX: M54.9 Dorsalgia, unspecified (principal)
CPT/HCPCS: 72072; 72110

== ENCOUNTER 2023-09-30 02:26 | Outpatient (CLI) | payer MEDICARE, SELFPAY ==
[2023-10-03 09:34] LABS: Anaplasma phagocytophilum Negative (Negative); B. miyamotoi PCR Negative (Negative); Babesia divergens/MO-1 Negative (Negative); Babesia duncani Negative (Negative); Babesia microti Negative (Negative); Ehrlichia chaffeensis Negative (Negative); Ehrlichia ewingii/canis Negative (Negative); Ehrlichia muris eauclairensis Negative (Negative)
[2023-10-03 12:12] LABS: Lyme Ab w Rflx to Lyme Confirm Negative (Negative)
== END 2023-09-30 02:27 | disposition home or self-care (01) ==
LOC: LOS 02:26
PROVIDERS: PCP Family Medicine; Visit Provider Family Medicine
DX: R53.83 Other fatigue (principal)
CPT/HCPCS: 36415; 87798; 86618

== ENCOUNTER 2023-10-08 10:44 | Emergency (ER) | payer MEDICARE, SELFPAY ==
[2023-10-08 10:49] VITALS: BP 141/86; PULSE 89; RESP 16; TEMP 36.4; O2SAT 97
--- NOTE | 2023-10-08 11:00 | DI.CT_ITS ---
Exam(s) CT LUMBAR SPINE RECONS CT RENAL COLIC WO EXAM: CT RENAL COLIC WO CLINICAL HISTORY: right flank pain. TECHNIQUE: Imaging Protocol: Axial computed tomography images with coronal and sagittal reformatted images were created and reviewed. COMPARISON: US ABDOMEN ULTRASOUND (P) from 10/27/[address] THORACIC LUMBAR SPINE WO from 09/03/2022 CR XR LUMBAR SPINE COMPLETE from 09/20/2023 FINDINGS: Examination limited secondary to the paucity of abdominal fat. ABDOMEN: Lung Bases: There is a small pericardial effusion. Liver: Normal density. No measurable mass. Gallbladder and biliary tract: No radiodense calculus or biliary ductal dilation. Pancreas: Normal density, no abnormal calcifications or inflammatory process. Spleen: There are few calcified granuloma. Kidneys: Normal size, contour and axis.There are 2 calcifications seen in the right retroperitoneum w hich are close to the ureter but are probably separate. No masses seen. Adrenal glands: There is mild thickening of the limbs of the adrenal gland but no mass is seen. Lymph nodes: Within normal limits. Abdominal Aorta: Abdominal portion non-dilated. Atherosclerotic calcification is present. PELVIS: Bladder:Urinary bladder is incompletely distended limiting evaluation. Bowel: There is a large amount of stool throughout the colon suggesting constipation. No evidence of appendicitis. No evidence of bowel wall thickening or bowel obstruction. Normal appendix is seen i n the right lower quadrant. Peritoneal cavity: There is a small amount of free fluid in the pelvis. No free air. Reproductive organs: Unremarkable as visualized. Bones: Within normal limits. Old bilateral rib fractures. There is a loop lucency/cyst in the left p ubic bone. No destructive changes are seen in the bones. No periosteal reaction is seen. Soft Tissues: Within normal limits. CT lumbar spine recons: Age-appropriate degenerative changes are seen in the lumbar spine, particular ly at L5-S1. There is an compression fracture of the superior endplate of L1 there is mild loss of h eight of the vertebral body. This was present and identified on the x-ray of the lumbar spine from . There is also compression deformity seen in the inferior endplate of T12. Mild central sp inal canal stenosis is seen at L2-L3. IMPRESSION: 1. Small pericardial effusion. 2. Large amount of stool throughout the colon consistent with constipation. 3. Subacute fracture of the superior endplate of L1. 4. Compression fracture deformity of the inferior endplate of T12 of which is indeterminate. RADIATION DOSE DELIVERED: 848.22mGy.cm Total DLP DATA REPOSITORY: All CT scans at this facility are submitted to the National Radiology Data Registry (NRDR) Dose Index Registry (DIR) with the [employer] (ACR). RADIATION OPTIMIZATION: All CT scans at this facility use at least one of these dose optimization te chniques: automated exposure control; mA and/or kV adjustment per patient size (includes targeted exa ms where dose is matched to clinical indication); or iterative reconstruction.
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
[2023-10-08 11:37] LABS: Abs Immature Grans 0.01 10^3/uL (0.0-0.06); Absolute Basophil Count 0.04 10^3/uL (0.0-0.2); Absolute Eosinophil Count 0.07 10^3/uL (0.0-0.7); Absolute Monocyte Count 0.56 10^3/uL (0.1-0.8); Absolute Neutrophil Count 3.27 10^3/uL (1.2-6.7); Basophils % 0.8 %; Eosinophils % 1.4 %; HCT 40.4 % (36.0-46.0); HGB 13.1 g/dL (11.2-15.7); Immature Grans % 0.2 %; Lymphocytes % 18.6 %; MCH 29.7 pg (27.0-33.0); MCHC 32.4 % (32.0-36.0); MCV 92 fL (80-95); Monocytes % 11.5 %; Neutrophils % 67.5 %; Platelet Count 171 10^3/uL (130-400); RBC 4.41 10^6/uL (3.93-5.22); RDW 12.9 % (11.7-14.6); RDW-SD 43.2 fL; WBC 4.85 10^3/uL (4.4-10.8)
[2023-10-08 11:50] LABS: Magnesium 2.1 mg/dL (1.8-2.4)
[2023-10-08 11:55] LABS: ALT 17 U/L (14-59); AST 18 U/L (15-37); Alkaline Phosphatase 129 U/L (46-116); Anion Gap 7.8 mmol/L (3-11); BUN 12 mg/dL (7-18); Bilirubin, Total 0.5 mg/dL (0.2-1.0); CO2 30.2 mmol/L (21.0-32.0); Calcium 9.3 mg/dL (8.5-10.1); Chloride 100 mmol/L (98-107); Estimated GFR 58.39 (mL/min/1.73m2); Glucose 103 mg/dL (74-106); Lipase 31 U/L (16-77); Potassium 3.8 mmol/L (3.5-5.1); Sodium 138 mmol/L (136-145); Total Protein 7.7 g/dL (6.4-8.2)
--- NOTE | 2023-10-08 14:28 | DI.VRAD_ITS ---
PROCEDURE INFORMATION: Exam: CT Lumbar Spine Without Contrast Exam date and time: 10/08/2023 12:28 PM Age: 78 years old Clinical indication: Lower back pain TECHNIQUE: Imaging protocol: Computed tomography of the lumbar spine without contrast. Radiation optimization: All CT scans at this facility use at least one of these dose optimization techniques: automated exposure control; mA and/or kV adjustment per patient size (includes targeted exams where dose is matched to clinical indication); or iterative reconstruction. COMPARISON: 1. CT ABDOMEN/PELVIS 10/08/2023 12:28 PM 2. XR LUMBAR SPINE 09/20/2023 10:52 AM FINDINGS: Bones/joints: There is a mild acute compression fracture of the L1 vertebral body. No significant encroachment upon the central canal. Disc degeneration with a vacuum disc at L5-S1, with lesser vacuum disc at L4-L5 and T12-L1. The facets align normally. Soft tissues: No acute soft tissue abnormality. IMPRESSION: Mild acute L1 vertebral body compression fracture. Dictated and Authenticated by: Edgar Tovar MD. Ordering:HUMBERTO Shelby MD
--- NOTE | 2023-10-08 14:29 | DI.VRAD_ITS ---
PROCEDURE INFORMATION: Exam: CT Abdomen And Pelvis Without Contrast Exam date and time: 10/08/2023 12:28 PM Age: 78 years old Clinical indication: Lower back pain TECHNIQUE: Imaging protocol: Computed tomography of the abdomen and pelvis without contrast. Radiation optimization: All CT scans at this facility use at least one of these dose optimization techniques: automated exposure control; mA and/or kV adjustment per patient size (includes targeted exams where dose is matched to clinical indication); or iterative reconstruction. COMPARISON: 1. CT LUMBAR SPINE 10/08/2023 12:28 PM 2. XR LUMBAR SPINE 09/20/2023 10:52 AM FINDINGS: Heart: Mild pericardial effusion. Liver: The liver is homogeneous and is not enlarged. Gallbladder and bile ducts: No calcified gallstones, gallbladder wall thickening, or pericholecystic inflammation. No biliary ductal dilation. Pancreas: No pancreatic enlargement. Spleen: Calcified granulomas in a nonenlarged spleen. Adrenal glands: No adrenal mass. Kidneys and ureters: No hydronephrosis or nephrolithiasis. Stomach and bowel: Large amount of stool and gas in the colon. Appendix: Partial visualization of the appendix with a normal caliber and gas in the lumen. Intraperitoneal space: Trace low-attenuation free intraperitoneal fluid. No pneumoperitoneum. Vasculature: No abdominal aortic aneurysm. Lymph nodes: No pathologically enlarged lymph nodes. Urinary bladder: The urinary bladder is small in volume. No bladder calculus. There is concentric bladder wall thickening which can be due to lack of distension or cystitis. Reproductive: Unremarkable as visualized. Bones/joints: There is a mild acute compression fracture of the L1 vertebral body. Lytic focus in the left pubic bone and superior pubic ramus. Gas in both sacral ala as well as the medial right ilium, potentially degenerative in etiology with trace gas in the sacroiliac joints as well. Soft tissues: No acute soft tissue abnormality. IMPRESSION: 1. Mild acute L1 vertebral body compression fracture. 2. See above for other information. Dictated and Authenticated by: Edgar Tovar MD. Ordering:HUMBERTO Shelby MD
[2023-10-08 14:49] LABS: Bilirubin Negative (Negative); Blood Negative (Negative); Clarity Clear (Clear); Glucose Negative (Negative); Ketones Negative (Negative); Leukocyte Esterase Negative (Negative); Nitrite Negative (Negative); Specific Gravity 1.015 (1.005-1.025); Urobilinogen 0.2 mg/dL (Up to 0.2); pH 7.5 (5-8)
[2023-10-08 15:01] VITALS: BP 141/86; PULSE 80; RESP 16; TEMP 36.4; O2SAT 97
[2023-10-08] MEDS: Lidocaine 5% Patch 1 PATCH TP (15:01)
== END 2023-10-08 15:02 | disposition home or self-care (01) ==
PROVIDERS: Emergency Provider Emergency Medicine; PCP Family Medicine
DX: S32.010A Wedge compression fracture of first lumbar vertebra, initial encounter for closed fracture (principal); M54.50 Low back pain, unspecified; R10.31 Right lower quadrant pain; X58.XXXA Exposure to other specified factors, initial encounter
CPT/HCPCS: 36415; 80053; 83690; 96365; 99284; 74176; 81003; 83735; 85025; 99283; J0131

== ENCOUNTER → 2023-10-28 00:20 | Outpatient (CLI) | payer MEDICARE, SELFPAY ==
--- NOTE | 2023-10-28 07:00 | DI.US_ITS ---
Exam(s) US ABDOMEN EXAM: US ABDOMEN CLINICAL HISTORY: bloated, hep C - treated, constipation, K73.9, R14.0, K59.00 TECHNIQUE: Ultrasound abdomen performed using standard protocol. COMPARISON: US ABDOMEN ULTRASOUND (P) from 03/15/2016 US US ABDOMEN from 07/15/2021 US US ABDOMEN from 09/21/[address] LUMBAR SPINE RECONS from 10/08/[address] RENAL COLIC WO from 10/08/2023 FINDINGS: LIVER: Normal size and echogenicity. No focal liver lesions are seen. GALLBLADDER: No evidence of cholelithiasis. No evidence of wall thickening. No pericholecystic fluid identified. LI'S SIGN: Negative. BILIARY SYSTEM: No intrahepatic or extrahepatic biliary ductal dilation. KIDNEYS: Kidneys are symmetric in size. No evidence of renal calculi. No evidence of hydronephrosis. There is a solid mildly echogenic rounded mass in the mid to superior pole of the right kidney measu ring 1.[address] recommended for further evaluation. It was not clearly visualized on prior noncontr ast CT. PANCREAS: Normal where visualized. SPLEEN: Not enlarged. ABDOMINAL AORTA AND IVC: Visualized portions normal caliber. ASCITES: None seen. IMPRESSION: Appearing liver and gallbladder jacobs no biliary dilatation. 1.8 centimeters solid renal mass. Contrast enhanced CT recommended for further evaluation. Unexpected findings DATA REPOSITORY:
== END ==
PROVIDERS: PCP Family Medicine; Visit Provider Family Medicine
DX: K59.09 Other constipation (principal); N28.89 Other specified disorders of kidney and ureter; R14.0 Abdominal distension (gaseous); K73.9 Chronic hepatitis, unspecified
CPT/HCPCS: 76700

== ENCOUNTER → 2023-11-09 01:36 | Outpatient (CLI) | payer MEDICARE, SELFPAY ==
--- NOTE | 2023-11-09 07:45 | DI.CT_ITS ---
Exam(s) CT ABDOMEN WO/W EXAM: CT ABDOMEN WO/W CLINICAL HISTORY: renal mass on US, N28.89 kidney/ureter disorder. TECHNIQUE: Imaging Protocol: Axial computed tomography images with coronal and sagittal reformatted images were created and reviewed CONTRAST MATERIAL: Intravenous: Omnipaque-350 100cc Oral: None COMPARISON: CR XR LUMBAR SPINE COMPLETE from 09/20/2023 CR XR THORACIC SPINE COMPLETE from 09/20/[address] RENAL COLIC WO from 10/08/2023 US US ABDOMEN from 10/28/2023 FINDINGS: VISUALIZED LUNG BASES: No nodules nor pleural effusions evident. However, there does appear to be a pericardial effusion which has slightly increased in size from 10/08/2023. ABDOMEN: There is no ascites. LIVER: There are no focal hepatic lesions evident. No dilated intrahepatic ducts. GALLBLADDER/BILIARY: No obvious gallbladder pathology. CBD is not dilated. PANCREAS: No evidence of pancreatic mass nor dilatation of the pancreatic duct. SPLEEN: Spleen is not enlarged. No obvious intrasplenic lesions. Splenic and portal veins are paten t. ADRENALS: There are no significant adrenal masses. KIDNEYS:Left kidney unremarkable. However, there is an enhancing solid lesion in the medial cortex o f the right kidney which measures 1.7 x 1.7 cm and suspicious for neoplasm or oncocytoma. There is n o abnormal mass in the ipsilateral infundibulum I and renal pelvis and the right ureter is not dilate d. Right renal vein is patent.. ABDOMINAL AORTA: Abdominal aorta is not enlarged. LYMPH NODES:There is no retroperitoneal nor paraaortic adenopathy. ABDOMINAL WALL: No evidence of significant anterior abdominal wall nor inguinal hernia. GI: There is abundant fecal material again noted in the colon. There is no evidence of bowel obstruc tion, free air, nor abscess. There is a concerning compression fracture of L1 which is acute or subacute appearing. Cannot exclud e metastatic. This appears to have significantly progressed when compared to the CT scan of 10/08/19 24. There is mild posterior bulging of the posterior cortex. No prominent spinal canal stenosis. IMPRESSION: 1. There is an enhancing 1.7 x 1.7 x 1.5 cm well-defined but malignant-appearing lesion in the medial cortex of the right kidney. Right renal vein is patent. No other significant renal findings. The opposite-left kidney is unremarkable. 2. There is a concerning compression fracture of L1 vertebral body which has significantly progressed when compared to CT of 10/08/2023 and the appearance may be suspicious for metastatic disease. 3. I note that on the images of 10/08/2023 there is also a compression fracture at the superior endpl ate of T11 evident in the most peripheral aspect of the field of view. This was evident on plain dontrell ms of the thoracic spine performed 09/20/2023. Those images also revealed compression fractures of T 7, T8, and T9 vertebral bodies. However, the T8 to T11 compression fractures were unchanged and from images of October 2021. The main new significant osseous finding is therefore the new progressive frac ture of L1 vertebral body, this in the setting of a malignant appearing small mass in the right kidne y. 4. RADIATION DOSE DELIVERED: 596.68mGy.cm Total DLP DATA REPOSITORY: All CT scans at this facility are submitted to the National Radiology Data Registry (NRDR) Dose Index Registry (DIR) with the [employer] ([employer]). RADIATION OPTIMIZATION: All CT scans at this facility use at least one of these dose optimization te chniques: automated exposure control; mA and/or kV adjustment per patient size (includes targeted exa ms where dose is matched to clinical indication); or iterative reconstruction.
[2023-11-09 10:24] LABS: CREATININE 0.8 mg/dL (0.55-1.02); Estimated GFR 76.31 (mL/min/1.73m2)
[2023-11-09] MEDS: Normal Saline - Diluent 50 ML VIAL IJ (10:40)
[2023-11-09] MEDS: Omnipaque 350 MG/ML 500 ML BTL-Imaging package 100 ML IJ (10:41)
[2023-11-09] MEDS: Normal Saline Flush 10 ML SYR IVP ×2 (10:42→10:50)
== END ==
PROVIDERS: PCP Family Medicine; Visit Provider Family Medicine
DX: Z01.812 Encounter for preprocedural laboratory examination (principal); N28.89 Other specified disorders of kidney and ureter
CPT/HCPCS: 74170; 82565

== ENCOUNTER → 2023-11-28 00:52 | Outpatient (CLI) | payer MEDICARE, SELFPAY ==
--- NOTE | 2023-11-28 06:15 | DI.MRI_ITS ---
Exam(s) MR LUMBAR SPINE WO/W EXAM: MR LUMBAR SPINE WO/W CLINICAL HISTORY: progressive L1 compression fx,? myleoma vs mets,N28.89,M80.88XD. TECHNIQUE: Multiplanar multisequence MRI of the Lumbar Spine was performed. CONTRAST MATERIAL: IV Contrast: 8 mL of Dotarem contrast administered. COMPARISON: CT CT ABDOMEN WO/W from 11/09/2023 FINDINGS: Bones: The last intervertebral disc space is designated the L5/S1 level for the numbering purpose of this examination. There is a fracture of the L1 vertebral body with loss of approximately 50 percent of the height of the vertebral body. There is mild retropulsion into the spinal canal but no signif icant central spinal canal stenosis or cord compression is seen. The vertebral body show some hyperi ntense signal on the T2 and hypointense signal on the T1 weighted images there is otherwise normal ma rrow signal in the lumbar spine. There is no spondylolysis or spondylolisthesis. Cord: The conus tip ends at the L1 level. It is of normal size and signal intensity. T12-L1: No disc herniations or bulges are present. No central spinal canal or neural foraminal stenos is. L1-2: No disc herniations or bulges are present. No central spinal canal or neural foraminal stenosis . L2-3: Diffuse disc bulge is present. No significant central spinal canal stenosis is seen. There is mild left neural foraminal stenosis. No significant right neural foraminal stenosis. L3-4: Mild diffuse disc bulge. Mild degenerative changes of the facets. No central spinal canal lonny nosis. Mild bilateral neural foraminal stenosis. L4-5: There is a mild diffuse disc bulge. Degenerative changes of the facets are seen. No significa nt central spinal canal stenosis is seen. [id number] bilateral neural foraminal stenosis is pr esent. L5-S1: There is a small right-sided disc herniation with extrusion posterior to the S1 vertebral body . No significant central spinal canal stenosis is seen. There is mild narrowing of the neural alexsander en. There are mild degenerative changes of the facets. Soft tissues: There is again seen a 1.7 cm right renal lesion (series [id number], image 20). Renal neopla sm should be considered. The paraspinal soft tissues are unremarkable. There is enhancement noted in the L1 vertebral body. This may be due to the progression of the fract ure. No other suspicious enhancement is seen. There is enhancement related to degenerative changes particular at L5-S1 and L1-L2. IMPRESSION: 1. Compression fracture deformity of the L1 vertebral body which has progressed since October 2023. The re is mild retropulsion into the spinal canal but no cord compression is seen. 2. Multilevel degenerative changes in the lumbar spine as described resulting in neural foraminal leticia rowing. Please see the above discussion for complete details of each level. 3. Small right-sided disc herniation at L5-S1 with extrusion posterior to the S1 vertebral body. 4. Has been is seen on the L1 vertebral body this may be related to the subacute fracture which has p rogressed within the last month. Pathologic fracture cannot be excluded. 5. 1.7 cm right renal lesion. Renal neoplasm should be considered. DATA REPOSITORY:
--- NOTE | 2023-11-28 06:15 | DI.MRI_ITS ---
Exam(s) MR THORACIC SPINE WO/W EXAM: MR THORACIC SPINE WO/W CLINICAL HISTORY: multile compression fx,? myeloma VS METS,N28.89,M80.88XD. TECHNIQUE: Multiplanar multisequence MRI of the Thoracic spine was performed. CONTRAST MATERIAL: IV Contrast: 8 mL of Dotarem contrast administered. COMPARISON: CT CT RENAL COLIC WO from 10/08/[address] ABDOMEN WO/W from 11/09/2023 MR MR LUMBAR SPINE WO/W from 11/28/2023 FINDINGS: The examination is limited due to patient motion artifact. Bones: There are old compression fracture deformities of T7, T8 and T9 and T11. These show normal ma rrow signal suggesting that these are old compression deformities. Alignment is satisfactory. There is an subacute fracture involving the inferior endplate of T12 on the left. This shows mild hyperint ense signal on the T2 weighted images and decreased signal on the T1 weighted images. No other thora cic compression fracture deformities are seen. There is no other abnormal signal seen in the thoraci c spine. There is hypointense signal seen in the medial aspect of the right 11th rib. (Series [id number] and image 16). This may represent a fracture. Cord: The thoracic cord is normal size and signal intensity. No intrinsic cord lesion is present. Discs: No large disc herniation is seen. Small disc bulges are seen at multiple levels but no centra l spinal canal stenosis is present. Soft tissues: Normal. There is some enhancement following contrast administration of the above described fracture sites. T here is no enhancement seen anywhere else in the thoracic spine. IMPRESSION: 1. Fracture involving the inferior endplate of T12 on the left with minimal loss of height of the minal tebral body. No retropulsion is seen. 2. Findings suspicious for fracture involving the medial aspect of the right 11th rib. 3. These areas show some enhancement following contrast administration. This may rib be related to t he subacute fracture which has progressed within the last month. Pathologic fracture cannot be exclu ded although, no other abnormal marrow signal or enhancement is seen. DATA REPOSITORY:
[2023-11-28] MEDS: Gadoterate meglumine 20 ML VIAL IVP (09:36)
== END ==
PROVIDERS: PCP Family Medicine; Visit Provider Family Medicine
DX: N28.89 Other specified disorders of kidney and ureter (principal); M80.88XD Other osteoporosis with current pathological fracture, vertebra(e), subsequent encounter for fracture with routine healing; S22.000D Wedge compression fracture of unspecified thoracic vertebra, subsequent encounter for fracture with routine healing; S32.000D Wedge compression fracture of unspecified lumbar vertebra, subsequent encounter for fracture with routine healing
CPT/HCPCS: 72158; 72157

== ENCOUNTER 2023-11-30 12:22 | Outpatient (CLI) | payer MEDICARE, SELFPAY ==
[2023-11-30 12:26] LABS: HCT 41.7 % (36.0-46.0); HGB 13.3 g/dL (11.2-15.7); MCH 29.7 pg (27.0-33.0); MCHC 31.9 % (32.0-36.0); MCV 93 fL (80-95); MPV 11.2 fL (8.0-11.0); Platelet Count 146 10^3/uL (130-400); RBC 4.48 10^6/uL (3.93-5.22); RDW 13.3 % (11.7-14.6); RDW-SD 45.5 fL; WBC 3.98 10^3/uL (4.4-10.8)
[2023-11-30 12:30] LABS: ESR 10 mm/hr (0-30)
[2023-11-30 12:41] LABS: ALT 15 U/L (14-59); AST 20 U/L (15-37); Albumin 4.1 g/dL (3.4-5.0); Alkaline Phosphatase 109 U/L (46-116); Anion Gap 7.8 mmol/L (3-11); BUN 5 mg/dL (7-18); Bilirubin, Total 0.42 mg/dL (0.2-1.0); CO2 30.2 mmol/L (21.0-32.0); CREATININE 0.8 mg/dL (0.55-1.02); Calcium 9.4 mg/dL (8.5-10.1); Chloride 102 mmol/L (98-107); Estimated GFR 76.31 (mL/min/1.73m2); Glucose 97 mg/dL (74-106); Potassium 4.1 mmol/L (3.5-5.1); Sodium 140 mmol/L (136-145)
[2023-12-01 13:04] LABS: Albumin 62.3 % (55.8-66.1); Albumin g/dL 4.7 g/dL (3.6-5.2); Total Protein 7.6 g/dL (6.3-8.2)
== END 2023-11-30 12:23 | disposition home or self-care (01) ==
LOC: LOS 12:23
PROVIDERS: PCP Family Medicine; Visit Provider Family Medicine
DX: M43.9 Deforming dorsopathy, unspecified (principal); I10 Essential (primary) hypertension; N28.89 Other specified disorders of kidney and ureter; M80.88XD Other osteoporosis with current pathological fracture, vertebra(e), subsequent encounter for fracture with routine healing; H61.23 Impacted cerumen, bilateral
CPT/HCPCS: 36415; 80053; 85027; 85652; 84165

== ENCOUNTER 2024-04-21 16:52 | Outpatient (REF) | payer MEDICARE, SELFPAY ==
[2024-04-23 13:23] LABS: HSV 1 DNA Result Positive (Negative); HSV 2 DNA Result Negative (Negative); Varicella Zoster DNA Result Negative (Negative)
== END 2024-04-21 16:53 | disposition home or self-care (01) ==
LOC: LBN 16:52
PROVIDERS: PCP Family Medicine; Visit Provider Nurse Practitioner Family
DX: R21 Rash and other nonspecific skin eruption (principal)
CPT/HCPCS: 87529; 87798

== ENCOUNTER 2025-01-24 04:29 | Outpatient (CLI) | payer MEDICARE, SELFPAY ==
[2025-01-24 08:45] LABS: HCT 38.9 % (36.0-46.0); HGB 12.5 g/dL (11.2-15.7); MCH 29.0 pg (27.0-33.0); MCHC 32.1 % (32.0-36.0); MCV 90 fL (80-95); MPV 11.1 fL (8.0-11.0); Platelet Count 132 10^3/uL (130-400); RBC 4.31 10^6/uL (3.93-5.22); RDW 13.1 % (11.7-14.6); RDW-SD 43.5 fL; WBC 3.85 10^3/uL (4.4-10.8)
[2025-01-24 09:57] LABS: Glucose Negative (Negative)
[2025-01-24 11:10] LABS: ALT 13 U/L (14-59); AST 17 U/L (15-37); Albumin 4.1 g/dL (3.4-5.0); Alkaline Phosphatase 75 U/L (46-116); Anion Gap 7.6 mmol/L (3-11); BUN 16 mg/dL (7-18); Bilirubin, Total 0.5 mg/dL (0.2-1.0); CO2 29.4 mmol/L (21.0-32.0); Calcium 9.6 mg/dL (8.5-10.1); Chloride 102 mmol/L (98-107); Estimated GFR 75.84 (mL/min/1.73m2); Glucose 94 mg/dL (74-106); Potassium 4.3 mmol/L (3.5-5.1); Sodium 139 mmol/L (136-145); Total Protein 7.7 g/dL (6.4-8.2)
== END 2025-01-24 04:30 | disposition home or self-care (01) ==
LOC: LBO 04:29
PROVIDERS: PCP Family Medicine; Visit Provider Family Medicine
DX: N28.89 Other specified disorders of kidney and ureter (principal); R53.83 Other fatigue; Z87.898 Personal history of other specified conditions; R06.02 Shortness of breath; I10 Essential (primary) hypertension
CPT/HCPCS: 36415; 80053; 85027; 81003